=== PATIENT | female | born 2005 | race Caucasian/White ===

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

== ENCOUNTER 2025-05-17 19:14 | Emergency (ER) | payer OTHER, SELFPAY ==
[2025-05-17 19:17] VITALS: BP 130/83; PULSE 111; RESP 16; TEMP 36.6; O2SAT 100
--- NOTE | 2025-05-17 19:23 | ED.FEMALEGU ---
HPI - Female Genitourinary General Chief complaint: Urogenital-Female Stated complaint: Uti Symptoms Time Seen by Provider: 05/17/25 19:23 Source: patient Mode of arrival: ambulatory Limitations: no limitations History of Present Illness HPI Narrative: 20 yo F presents with c/o urinary frequency, urgency, dysuria for 3 days. Today has decreased output. Afebrile. currently on her period. No concern for STI. All systems reviewed and negative except as noted above. Related Data Home Medications ?Medication ?Instructions ?Recorded ?Confirmed ?Last Taken ?Type norethindrone (contraceptive) 0.35 mg 05/17/25 Unknown History mg tablet Allergies Allergy/AdvReac Type Severity Reaction Status Date / Time No Known Allergies Allergy Verified 05/17/25 19:18 [facility] Past Medical History Medical History (Updated 05/17/25 @ 19:31 by Kerri Frey NP) Ear infection Surgical History Surgical History No significant past surgical history Family History Family History Grandparent Cancer Other Alcoholism Anxiety Depression Hypertension Social History Social History Smoking packs per day: 1 Smoking cigarettes per day: 20.0 Years smoked: 5 Smoking pack-years: 5.00 Smoking status: Current every day smoker (quit vaping 2 days ago) Tobacco type: e-cigarettes/vaping Alcohol intake: current Alcohol use details: socially drinks/1 per month Substance use: current Substance use type: marijuana Other substance usage details: smoke marijuana once a week Lack of Transportation: No Lack of Food: Never True Current Housing: I Have Housing Concerned About Future Housing: No Difficulty Paying Gas/Electric Bills: No Difficulty Paying for Meds: No Currently Unemployed: No Education: High School Diploma/GED Difficulty w/ Childcare or Family Care: No Living arrangements: with family Occupation/Education: student Gender identity (if verbalized by the patient): Female Spiritual care concerns: No Comments At time of signature, agree with nursing past medical, surgical, social and family history. There is no relevant family history pertinent to the presenting complaint. Exam Narrative: GENERAL: This is a well-nourished, well-developed patient, in no apparent distress. HEAD: normocephalic, atraumatic. EYES: PERRL. Sclera clear/white. Vision is grossly intact. EARS: External ears normal NOSE: External nose normal NECK: Neck supple, non-tender without lymphadenopathy, masses or thyromegaly. CARDIOVASCULAR: Regular rate and rhythm without murmurs, gallops, or rubs. RESPIRATORY: Clear to auscultation. Breath sounds equal bilaterally. No wheezes, rales, or rhonchi. SKIN: warm, Dry, intact with no suspicious lesions or rash, good texture and turgor. NEURO: awake, alert, and oriented to person, place and time. There were no obvious focal neurologic abnormalities. EXTREMITIES: No joint tenderness, effusion, or edema noted. Course Course Level of Care: Express Care Visit Vital Signs Vital signs: Reviewed MDM - Female Genitourinary MDM Narrative Medical decision making narrative: Unable to complete urinalysis due to patient's urine being brownish colored. Urine culture ordered. Discussed this with patient. Will treat with antibiotic due to patient's symptoms. Patient is well-appearing, nontoxic. Differential Diagnosis Differential diagnosis: Likely urinary tract infection Discharge Plan Discharge Clinical Impression: Urinary tract infection Patient Disposition: Home Condition: Stable Instructions: Antibiotic Form, Urinary Tract Infection in Women (ED) Additional Instructions: Take antibiotic as prescribed until gone. May take [id number] [id number] as directed on packaging to treat urinary symptoms. Drink at least 64 oz of water a day. If you have severe pain, vomiting, fever go to the ER. Patient Language: Vietnamese Prescriptions: New amoxicillin-pot clavulanate [Augmentin] 500-125 mg tablet 1 tablet PO BID 5 Days Qty: 10 0RF No Action norethindrone (contraceptive) 0.35 mg tablet Follow-up/Referrals: PHYSICIAN,SENIOR SCHEDULER [Primary Care Provider, Internal Medicine] Time of Disposition: 19:32
== END 2025-05-17 19:33 | disposition home or self-care (01) ==
PROVIDERS: Emergency Provider Nurse Practitioner Family
DX: N39.0 Urinary tract infection, site not specified (principal); Z87.891 Personal history of nicotine dependence; F12.90 Cannabis use, unspecified, uncomplicated
CPT/HCPCS: 87086; 87186; 99213; G0463

== ENCOUNTER 2025-08-25 22:04 | Emergency (ER) | payer OTHER, SELFPAY ==
--- OUTSIDE RECORDS SUMMARY | 2025-08-25 22:05 | XMS_ITS | Clinical Summary ---
Author Organization [facility] [employer] Address [address] [address] Care Team Providers Care Flap Curer Name Role Phone Roshni Cotter MD Unavailable [phone] Roshni Cotter MD Primary Care Provider [phone] Source Comments [facility],non-owned Affiliates and Associated Physician Practices is amultiple site organization consisting of ambulatory clinics and hospital sitesin [place], [place], [place] and [place]. This disclosure is being madepursuant to the Care Everywhere program and may not contain all information available regarding this patient. Last updated 18.[facility] Allergies No known active allergies Medications * Be aware that medications may not be up to date on this document. Alwaysverify current medications with the patient. norethindrone-e thinyl estradiol (Loestrin 10/06) 1-20 MG-MCG tablet TAKE 1 TABLET BY MOUTH EVERY DAY 84 tablet 3 10/25/2022 Active clobetasol (Temovate) 0.05 % ointment Apply to affected area 2 times daily 60 g 4 03/26/2023 Active SUMAtriptan (Imitrex) 25 MG tablet Take 1 tab by mouth once at first sign of migraine. May repeat one time after 2 hours if needed. 9 tablet 05/29/2023 Active Active Problems Problem Noted Date Diagnosed Date Excessive weight loss 06/23/2022 Acne vulgaris 07/05/2020 Lightheadedness 05/25/2020 Migraine without status migrainosus, not intract able 06/28/2018 cholesterol 2020 -high TG Overview (06/17/2015): Pediatric Screening Measures Metabolic Screen Date: N/A Result: normal Hearing Screen Date: N/A Result: normal Blood type AB- Resolved Problems Problem Noted Date Diagnosed Date Resolved Date Tinea versicolor 06/28/2018 07/05/2020 Immunizations Immunization Administration Dates Next Due INFLUENZA VACCINE, TRIV. (AF LURIA, FLUZONE TRIVALENT; 6MO+) (IIV3) 07/22/2010 DTAP/IPV 07/22/2010 DTaP VACCINE IM (6wk-6yrs) 11/15/2006,,2005,07/04 HEP A PEDS 2 DOSE 05/07/2008,05/09/2007 HEP B VACCINE, PED/ADOL 2005,09/14,2005,05/03 HIB BOOSTER 08/28/2006, 6,2005,07/04 Human Papilloma Virus Nineva lent Vaccine 11/27/2016,05/26/2016 INFLUENZA VACCINE, QUADR. (F LUZONE; FLULAVAL; FLUARIX; AFLURIA QUADRIVALENT; 6MO+), 0.5 ML (IIV4) 07/02/2020,07/01/2019,06/28/2018,05/28,05/26/2016,05/31/2015 Influenza Nasal 06/03/2012,06/30/2011 FRANCISCO JAVIER VACCINE QUAD LAIV4 PF NASAL 06/01/2014 MENINGOCOCCAL ACWY (MCV4P) VAC IM 06/21/2021,05/2016 MMR 06/29/2009,05/04/2006 PNEUMOCOCCAL CONJ, PEDS 05/04/2006,11/16,2005,07/04 POLIO IPV 2005,2005,2005 TDAP (7yrs+) 05/26/2016 Family History Medical History Relation Name Comments ADD/ADHD Brother Arthritis Father Hypertension Father Migraine Father Anemia Mother Cancer Other dads sister at age 16 of colon cancer Migraine Other dads sister Cancer Paternal Grandmother Migraine Paternal Grandmother Migraine Paternal Uncle Relation Name Status Comments Brother Father Mother Other dads sister Paternal Grandmother Paternal Uncle Social History Tobacco Use Types Packs/Day Years Used Date Smoking Tobacco: Never Tobacco Cessation:Counseling Given: Not Answered Comments:aunt Alcohol Use Standard Drinks/Week Comments No 0 (1 standard drink = 0.6 oz pur e alcohol) PHQ-2 Answer Date Recorded PHQ2 TOTAL SCORE 0 11/21/2022 Comments No Sex and Gender Information Value Date Recorded Sex Assigned at Not on file Legal 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 Gender Identity Not on file Sexual Orientation Not on file 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 Not on file Not on file Not on file Last Filed Vital Signs Vital Sign Reading Time Taken Comments Blood Pressure 118/75 06/23/2022 12:56 PM CDT Pulse 99 08/17/2022 2:53 PM CONSTRUCTION TECHNOLOGY INSTRUCTOR Temperature 37.1 C (98.7 F) 01/19/2023 12:54 PM CDT Respiratory Rate 16 03/02/2022 8:23 AM CDT Oxygen Saturation 100% 08/17/2022 2:53 PM CONSTRUCTION TECHNOLOGY INSTRUCTOR Inhaled Oxygen Concentration - - Weight 49 kg (108 lb) 01/19/2023 12:54 PM CDT Height 154.9 cm (5' 1) 06/23/2022 12:56 PM CDT Body Mass Index - - Plan of Treatment Health Maintenance Due Date Last Done Comments HIV SCREENING 2020 MENINGOCOCCAL (Group B) VACC INE SHARED DECISION-MAKING (1 of 2 - Standard) 2021 HEPATITIS C SCREENING 04/29/2023 CHLAMYDIA/GONORRHEA SCREENING 11/30/2023 11/29/2022 DEPRESSION SCREENING 09/17/2024 11/21/2022 COVID-19 VACCINE ( - 2024-2 6 season) 2025 INFLUENZA VACCINE (#1) 2025 , 07/01/2019, 06/28/2018, Additional history exists DTAP/TDAP/TD VACCINES (7 - T d or Tdap) 05/26/2026 05/26/2016, 07/22/2010, 11/15/2006, Additional history exists ZOSTER VACCINE (1 of 2) 2055 HEPATITIS B VACCINE Completed 2005, 2005, 2005, Additional history exists PNEUMOCOCCAL VACCINE Completed 05/04/2006, 2005, 2005, Additional history exists HIB VACCINE Completed 08/28/2006, 10/2005, 2005, Additional history exists HPV VACCINE Completed 11/27/2016, 05/26/2016 MENINGOCOCCAL GROUPS A/C/Y/W VACCINE Completed 06/21/2021, 05/26/2016 Goals Goal Patient Goal Type Associated Problems Recent Progress Patient-Stated? Author Use safety retraint in car Lifestyle On track( 022 1:02 PM CDT) Lisa Sullivan RN Insurance [employer] SELF PAY NO INSURANCE Member Subscriber Plan / Payer (Ef fective for All Dates) Name:Eladia Rico Member ID:Not on file Relation to Subscriber:Not on file Name:ELADIA RICO Subscriber ID:Not on file (Home) Address: [address] [place] [address] Payer ID:Not on file Group ID:Not on file Type:Self Pay Address: [place], [place] ANTHEM ANTHEM Care Teams Flap Curer Relationship Specialty Start Date End Date Roshni Cotter MD PCP - Pediatrics 06/08/09 Roshni Cotter MD PCP - General Pediatrics 08/07/11
--- OUTSIDE RECORDS SUMMARY | 2025-08-25 22:05 | XMS_ITS | Encounter Summary ---
Author Organization [facility] Address [address] [place] [address] Care Team Providers Care Professor Of Criminal Justice Name Role Phone Roshni Cotter MD Unavailable [phone] Roshni Cotter MD Primary Care Provider [phone] Encounter Details Date Type Department Care Team (Late st Contact Info) Description 12/23/2020 [facility] Outpatient Visit [facility] [address] [place] [phone] Jamaica Rosales MD [address] [place] [phone] Social History Tobacco Use Types Packs/Day Years Used Date Smoking Tobacco: Never Comments:aunt Alcohol Use Standard Drinks/Week Comments No 0 (1 standard drink = 0.6 oz pur e alcohol) Comments No Sex and Gender Information Value Date Recorded Sex Assigned at Not on file Legal 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 Author Use safety retraint in car Lifestyle On track( 022 1:02 PM CDT) Lisa Sullivan RN documented as of this encounter Visit Diagnoses Not on filedocumented in this encounter Additional Health Concerns Infection Onset Date Last Indicated Resolved Time COVID-19 Under Investigation 01/17/2021 01/17/2021 01/17/2021 4:25 PM CDT COVID-19 Under Investigation 05/16/2021 05/16/2021 05/16/2021 3:51 PM CDT COVID-19 Under Investigation 06/07/2021 06/07/2021 06/07/2021 4:09 PM CDT COVID-19 Under Investigation 08/22/2021 08/22/2021 08/22/2021 2:52 PM DEPUTY MANAGER COVID-19 Under Investigation 01/19/2023 01/19/2023 01/19/2023 1:46 PM CDT documented as of this encounter Care Teams Professor Of Criminal Justice Relationship Specialty Start Date End Date Roshni Cotter MD PCP - Pediatrics 06/08/09 Roshni Cotter MD PCP - General Pediatrics 08/07/11 documented as of this encounter
--- OUTSIDE RECORDS SUMMARY | 2025-08-25 22:05 | XMS_ITS | Data Portability ---
Author Organization [facility] Address [address] [place] [address] Care Team Providers Care Scrap Stripper Hand Name Role Phone MARTÍN IVEY Primary Care Provider Assessment Encounter Date Assessment Date Assessment LastModified by Organization Details LastModified Time 11/29/2022 11/29/[address] trich done. continue OCP, doing well, do not think bleeding is BTB cervix friable- monsels applied. pelvic rest for 10d FU 1 year or prn [email or web address] Not available 11/29/2022 17:04:14 01/02/2024 01/02/2024 Annual gynecological exam performed. Patient will come back in a year unless there are new symptoms. Not available 01/02/2024 16:09:33 03/25/2025 03/25/2025 Annual gynecological exam performed. Patient will come back in a year unless there are new symptoms. [email or web address] Not available 03/25/2025 12:20:07 Plan of Treatment Reminders Order Date Submit Date Provider Last Modified By Organization Details Last Modified Time Details Appointments None recorded. Lab None recorded. Referral None recorded. Procedures None recorded. Surgeries None recorded. Imaging None recorded. Medication Orders norethindro ne (contracept mj) 0.35 mg tablet 2024 025 [facility] [address] [place], [address], 12:20:06 Junel Fe 24 1 mg-20 mcg (24)/75 mg (4) tablet 2023 024 [email or web address] [facility] [address] [place], [address], 09:22:33 Patient TargetsNo targets recorded. Patient InstructionsNo instructions recorded. Reason for Referral None Reported. Results Created Date Observation Date Name Description Value Unit Range Abnormal Flag Note LastModifiedBy Organization Detail LastModifiedTime 11/30/1911/29/2022 CT/GC AND TRICH OMONA S VAGIN CECI (RRNA ), SWAB chlamydia trachomatis, PCR Negati ve negati ve Not Available [facility] (Lab) [address], [place], [address], 11/30/2022 14:16:44 11/30/19 23 11/29/2022 CT/GC AND TRICH OMONA S VAGIN CECI (RRNA ), SWAB neisseria gonorrhoeae, PCR Negati ve negati ve Not Available [facility] (Lab) [address], [place], [address], 11/30/2022 14:16:44 11/30/19 23 11/29/2022 CT/GC AND TRICH OMONA S VAGIN CECI (RRNA ), SWAB trichomonas vaginalis ribosomal RNA (rrna) Negati ve negati ve Not Available [facility] (Lab) [address], [place], [address], 11/30/2022 14:16:44 01/02/20 24 01/02/2024 CT/GC AND TRICH OMONA S VAGIN CECI (RRNA ), URINE chlamydia trachomatis, PCR Negati ve negati ve Not Available [facility] (Lab) [address], [place], [address], 01/03/2024 19:54:48 01/02/20 24 01/02/2024 CT/GC AND TRICH OMONA S VAGIN CECI (RRNA ), URINE neisseria gonorrhoeae, PCR Negati ve negati ve Not Available [facility] (Lab) [address], [place], [address], 01/03/2024 19:54:48 01/02/20 24 01/02/2024 CT/GC AND TRICH OMONA S VAGIN CECI (RRNA ), URINE trichomonas vaginalis ribosomal RNA (rrna) Negati ve negati ve AH Not Available [facility] (Lab) [address], [place], [address], 01/03/2024 19:54:48 Result Notes None recorded. Problems Name Problem SNOMED Code Status Onset Date Resolution Date Notes Provider Name and Address Organization Details Recorded Time Migraine without aura 13999616 Active 023 Patsy Hill MD [address], [place], [address], [facility] 17:01:39 Problem Notes None recorded. Medical Equipment None Reported. Allergies No known drug allergies Medications Name Sig Start Date Stop Date Status Note LastModified by Organization Details LastModified Time amoxicillin 500 mg capsule TAKE 1 CAPSULE BY MOUTH TWICE DAILY FOR 10 DAYS 06/13 completed Not Available Not Available Not Available benzonatate 200 mg capsule TAKE 1 CAPSULE BY MOUTH THREE TIMES DAILY NEEDED FOR COUGH 03/25 completed Not Available Not Available Not Available sumatriptan 25 mg tablet TAKE 1 TABLET BY MOUTH ONCE AT FIRST SIGN OF MIGRAINE. MAY REPEAT ONE TIME AFTER 2 HOURS IF NEEDED. 03/25 completed Not Available Not Available Not Available prednisone 20 mg tablet TAKE 2 TABLETS BY MOUTH ONCE DAILY FOR 5 DAYS 03/25 completed Not Available Not Available Not Available omeprazole 40 mg capsule,del ayed release TAKE 1 CAPSULE BY MOUTH ONCE DAILY 03/25 completed Not Available Not Available Not Available dicyclomine 20 mg tablet TAKE 1 TABLET BY MOUTH 4 TIMES DAILY 03/25 completed Not Available Not Available Not Available nortriptyli ne 10 mg capsule TAKE 1 CAPSULE BY MOUTH ONCE DAILY AT BEDTIME 03/25 completed Not Available Not Available Not Available norethindro ne acetate 1 mg-ethinyl estradiol 20 mcg tablet TAKE 1 TABLET BY MOUTH ONCE DAILY 03/25 completed Not Available Not Available Not Available clobetasol 0.05 % topical ointment APPLY TOPICALLY TO AFFECTED AREA TWICE DAILY 08/21 completed Not Available Not Available Not Available methylpredn isolone 4 mg tablets in a dose pack FOLLOW PACKAGE DIRECTION S 01/01 completed Not Available Not Available Not Available norethindro ne (contracept mj) 0.35 mg tablet Take 1 tablet every day by oral route. 2024 active Not Available Not Available Not Avai lable ondansetron 4 mg disintegrat ing tablet DISSOLVE 1 TABLET IN MOUTH EVERY 8 HOURS NEEDED FOR NAUSEA AND VOMITING 03/25 completed Not Available Not Available Not Available amoxicillin 875 mg-potassiu m clavulanate 125 mg tablet TAKE 1 TABLET BY MOUTH EVERY 12 HOURS FOR 7 DAYS 03/25 completed Not Available Not Available Not Available atomoxetine 25 mg capsule 03/25 completed Not Available Not Available Not Available Imitrex 08/21 completed Not Available Not Available Not Available Norethindro ne-Ethin Estradiol 03/25 completed Not Available Not Available Not Available Ladarius 24 Fe 1 mg-20 mcg (24)/75 mg (4) tablet Take 1 tablet every day by oral route with meal(s) for 90 days. 01/24 completed Not Available Not Available Not Available Vitals Date Recorded Body height Body mass index (BMI) [Percentile] Per age and sex Body mass index (BMI) Body weight Systolic And Diastolic Provider Name and Address Organization Details Last Updated DateTime 11/29/2022 154.94 cm 31 % 19.7 kg/m2 09752.6 1 g 129/80 mm[Hg] Sherin Corona [facility] 16:25:10 Date Recorded Systolic And Diastolic Provider Name and Address Organization Details Last Updated DateTime 01/02/2024 116/70 mm[Hg] Shena Monique, [facility]- [address], [place], [address], [facility] 01/02/2024 16:28:00 Date Recorded Body height Body mass index (BMI) Body mass index (BMI) [Percentile] Per age and sex Body weight Provider Name and Address Organization Details Last Updated DateTime 01/02/2024 154.94 cm 19.5 kg/m2 23 % [address].[address] [facility] 01/02/2024 16:09:47 Date Recorded Body height Body mass index (BMI) Body mass index (BMI) [Percentile] Per age and sex Body weight Systolic And Diastolic Provider Name and Address Organization Details Last Updated DateTime 03/25/2025 154.94 cm 19 kg/m2 15 % 84140.1 1 g 114/73 mm[Hg] Sara Olmedoton [facility] 5 11:54:03 Date Recorded Body height Body mass index (BMI) [Percentile] Per age and sex Body mass index (BMI) Body weight Systolic And Diastolic Provider Name and Address Organization Details Last Updated DateTime 08/21/2023 154.94 cm 51 % 21.4 kg/m2 85543.9 4 g 112/73 mm[Hg] Nan Ingram [facility] 3 18:39:43 Social History Question Answer Notes LastModified by Organizat ion Details LastModified Time Tobacco Smoking Status Never Smoker [facility] 11/29/2022 12:21:12 How Many Years Have You Consumed Alcohol? 3 [email or web address] Information not available 03/25/2025 Are You Blind Or Do You Have Difficulty Seeing? No [email or web address] Information n ot available 03/25/2025 What Is Your Level Of Caffeine Consumption? Occasional [email or web address] Information not available 03/25/2025 How Much Tobacco Do You Chew? None [email or web address] Information not available 03/25/2025 In The 14 Days Before Symptom Onset, Have You Had Close Contact With A Laboratory-confirm ed COVID-19 While That Case Was Ill? No Information n ot available 08/21/2023 In The 14 Days Before Symptom Onset, Have You Had Close Contact With A Person Who Is Under Investigation For COVID-19 While That Person Was Ill? No Information not available 08/21/2023 Have You Been To An Area Known To Be High Risk For COVID-19? No Information not available 08/21/2023 Are You Deaf Or Do You Have Serious Difficulty Hearing? No [email or web address] Information not available 03/25/2025 What Type Of Diet Are You Following? REGULAR [email or web address] Information n ot available 03/25/2025 What Is The Highest Grade Or Level Of School You Have Completed Or The Highest Degree You Have Received? RV26649-1 [email or web address] Information not available 03/25/2025 Are There Any Guns Present In Your Home? No [email or web address] Information not available 03/25/2025 Have You Ever Been Counseled For Unhealthy Alcohol Use? No Information not available 11/29/2022 Do You Use Protection During Sex? Usually [email or web address] Information not available 03/25/2025 Do You Use Your Seat Belt Or Car Seat Routinely? Yes [email or web address] Information not available 03/25/2025 Do You Have Smoke And Carbon Monoxide Detectors In Your Home? Yes [email or web address] Information not available 03/25/2025 How Much Tobacco Do You Smoke? No [email or web address] Information not available 03/25/2025 Do You Use Sunscreen Routinely? Yes [email or web address] Information not available 03/25/2025 Has Tobacco Cessation Counseling Been Provided? No Information not available 11/29/2022 Have You Used IV Drugs? No [email or web address] Information not available 03/25/2025 Sex: Unknown Functional Status Question Answer Note LastModified by Organizat ion Details LastModified Time Do you use any illicit or recreational drugs? No Information not available 11/29/2022 Do you or have you ever used any other forms of tobacco or nicotine? No Information not available 11/29/2022 What is your level of alcohol consumption? Occasional Information not available 11/29/2022 Are you able to walk independently without assistance or assistive devices? 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 None [email or web address] Information not available 03/25/2025 Mental Status Question Answer Note LastModified by Organization D etails LastModified Time Do you feel stressed (tense, restless, nervous, or anxious, or unable to sleep at night)? [id number] [email or web address] Information not available 03/25/2025 Family History Relationship Description Onset Age of this Age Resolved Age Notes LastModified by Organization Details LastModified Time Paternal Aunt Malignant neoplasm of colon [email or web address] Not available 2022 16:25:41 Paternal Aunt Anxiety disorder [email or web address] Not available 2024 11:49:07 Paternal Aunt Depressive disorder [email or web address] Not available 2024 11:49:07 Paternal Aunt Substance abuse [email or web address] Not available 2024 11:49:07 Paternal Grandmother Hypertensive disorder [email or web address] Not available 2022 16:26:07 Paternal Grandmother Anxiety disorder [email or web address] Not available 2024 11:49:07 Paternal Grandmother Depressive disorder [email or web address] Not available 2024 11:49:07 Paternal Grandmother Substance abuse [email or web address] Not available 2024 11:49:07 Father Depressive disorder [email or web address] Not available 2022 16:26:13 Father Anxiety disorder [email or web address] Not available 2022 16:26:18 Father Hypertensive disorder [email or web address] Not available 2024 11:49:07 Father Substance abuse [email or web address] Not available 2024 11:49:07 Maternal Uncle Anxiety disorder [email or web address] Not available 2024 11:49:07 Maternal Uncle Depressive disorder [email or web address] Not available 2024 11:49:07 Maternal Uncle Hypertensive disorder Not available 2024 11:49:07 Maternal Uncle Substance abuse Not available 2024 11:49:07 Brother Anxiety disorder [email or web address] Not available 2024 11:49:07 Unspecified Relation Malignant neoplasm of uterus [email or web address] Not available 2024 11:49:07 Maternal Grandmother Anxiety disorder [email or web address] Not available 2024 11:49:07 Maternal Grandmother Depressive disorder [email or web address] Not available 2024 11:49:07 Maternal Grandmother Substance abuse [email or web address] Not available 2024 11:49:07 Maternal Grandfather Anxiety disorder [email or web address] Not available 2024 11:49:07 Maternal Grandfather Depressive disorder [email or web address] Not available 2024 11:49:07 Maternal Grandfather Substance abuse [email or web address] Not available 2024 11:49:07 Paternal Grandfather Substance abuse Not available 2024 11:49:07 Medical History Condition Response Allergies (Food, seasonal, environmental ) N Other N Drug/Latex Allergies/Reactions N Breast Cancer N Blood Transfusion N Dermatologic Disorders N Lung Disease N Defects or Inherited Disease N Breast Problem N Gestational Diabetes N Hematologic disorders N Anesthesia Complications N History of STI N Deep Vein Thrombosis N Polycystic ovary syndrome N Anxiety Disorder N Autoimmune disease N Arthritis N Polyps N Infertility N Acid Reflux (GERD) N History of abnormal pap N Cancer N Varicosities N Stroke N Neurologic/Epilepsy N Endometriosis N High Cholesterol N Fibromyalgia N Headaches Y Kidney Disease N Heart Problems N Thyroid Problems N Kidney or Bladder Problems N GI Problems N Eating Disorder N Anemia N Art (IVF or FET) N Psychiatric Illness N Ovarian Cancer N Diabetes N Pulmonary (TB, Asthma) N Hepatitis/Liver Disease N No Past Medical History N Eczema N Urinary Tract Infection N Abuse/Domestic Violence N Asthma N Trauma/Violence N Depression/ depression N Heart Disease N Pre-Eclampsia N Hypertension N Osteoporosis N Thrombophilias N Gynecological History Statement/Question Response Flow Light Date of LMP 03/21/2025 N Was last menstrual period normal N STIs/STDs N HPV Vaccine Y Duration of Flow (days) 4 Current Control Method BCPs Are cycles usually normal Y Frequency of Cycle (Q days) 28 Sexually Active? N Menses Monthly Y Age of first menstrual cycle 12 Date of Last Pap Smear Sexual Problems? N Desired Control Method BCPs LMP Definite N Obstetrics History GPAL:G 0 P 0 0 0 0 Past Encounters Encounter ID Performer Location Encounter Start Date Encounter Closed Date Diagnosis/Indication Diagnosis SNOMED-CT Code Diagnosis ICD10 Code Diagnosis IMO Codes Diagnosis Note [id number] Patsy Hill MD [place] [address] [address] 11/29/2022 16:15:33 11/29/2022 17:12:56 Postcoital bleeding 35082894 N93.0 Surveillan ce of oral contraception 945466220 Z30.41 Venereal d isease screening 275618725 Z11.3 [id number] [facility] [address] [address] 08/21/2023 18:23:59 08/22/2023 15:40:01 Contraception care management 496944295 Z30.9 Discussed all control options in depth and pt is interested in Nexplanon. Discussed all risks and benefits including irregular unschedule d bleeding. Pt verbalized understand ing and would like to proceed. She is currently on BCP's.We discussed that if she stays on these she can make the switch to nexplanon at any time and we do not need to wait for another cycle; as long as that day's UPT is neg we can place this device.Remy l update STD urine screen at that visit as well.Under standing verbalized and agreeable. Will review literature given & call to schedule. Time spent in visit is a total of 30 mins with at least 50% of visit consisting of counseling and review of plan of care. [id number] AGUS Guzman[facility] [address] [address] 01/02/2024 16:00:57 01/02/2024 16:38:04 Gynecologic examination 70521929 Z01.419 Take Calcium with Vitamin D 1200mg daily if not receiving in daily diet. It is strongly advised to have an annual flu shot and up can obtain at most pharmacies . If you have not had a TDap shot in the last 10 years you should obtain one as well. Discussed with patient & provided with informatio n regarding Gardisil vaccine to prevent the 4 strains for HPV that cause cervical cancer. Encourage safe sexual practices, to use condoms and limit partners if not already in a monogamous relationsh ip. Do monthly self breast exams. BRCA testing is now available for patients with strong genetic history of female cancer. If interested contact the office. Engage in daily exercise of low impact aerobic exercise 45-60 minutes 4-5 times weekly. Avoid tobacco, illicit drugs, and alcohol. This lifestyle behavior pattern will lead to less health conditions and longer life span. If BMI greater than 25 weight watchers or dietary consult advised. Pap smear is not recommende d prior to the age of 21. If you have any concerns, pelvic, or vaginal problems we can discuss testing. Patient received above instructio ns, and questions have been answered. If you have any questions please call or respond to this email. Patient was made aware of the patient portal and may obtain a paper copy of today's plan if desired.[place] p due age 21yoSTD Screen urine sentGeneti c Screen discussedC olon Screen naDexa Screen naRoutine Labs PCPHappy on her OCPDiscuss ed weight loss-she is seeing her PCP about appetite decrease/n ausea with first meal of the day.Neg anxiety, ED, Food aversions that would contribute to this; school is fine.Frien ds are good.Work is good.encou raged PCP visit. [id number] Aleksandar Hodge MD [place] [address] [address] 03/25/2025 11:44:20 03/25/2025 12:27:45 Contraception care management 608999499 Z30.9 Discussed all control options in great detail. Pt would like to start ocp. She is aware of the risks and benefits. She does have history of migraines with aura. Recommende d progestero ne-only control pill.Pt will start her pills on the first sunday following the start of her period. She is aware it is not effective for control the first month. She is also aware of the importance of taking at the same time every day. Encouraged use of condoms as the pill does not protect against STD's. Will return in 3 months for med check if having concerns or if periods are still irregular. Consent was read and signed. Pt verbalized understand ing. Health Concerns Section Related Observation LastModified by Organization Detai ls LastModified Time None Recorded Concern Status LastModified by Organization Details LastModified Time None Recorded Advance Directives Directive None Recorded Payers Insurance Date Sequence Insurance Name Policy Number Policy Santizo Covered Member ID Santizo Member ID Guarantor Name 03/11/2025 1 [employer] Rico [id number] Denae Rico 03/23/2025 1 MATT Rico [id number] Denae Rico 03/25/2025 1 [facility] Eladia Rico [id number] Denae Rico 06/11/2023 1 [place] [id number] Denae Rico [id number] Denae Rico 11/07/2022 1 [place] [id number] Denae Rico [id number] Denae Rico Notes Date Note Type Note Provider Name and Address Organization Details Recorded Time 3 text/html Patient is a 17yo G0 who presents for bleeding with sex. She is sexually active with one partner for the last month. Each of the 6 times she has bled moderately for 2 days after. On OCP for 3 years for heavy periods, very good about taking pills on time, periods very regular with no BTB. Using condoms every time. No pain with bleeding. Concerns: HPV vaccine: done Depression:denies Domestic violence:denies exercise:yes, regular Patsy Hill MD [address], [place], [address], [facility] 11/29/2022 17:04:58 3 text/html ROS as noted in the HPI Here today for control consultation of nexplanon. On pills nowFeels nexplanon would be a better choice for her.Wants something that is not daily. Neg pain of abd/pelvis/flankNeg urinary sx'sNeg GI sx'sNeg N/V/F/C/DNeg Vag d/c, odor, irritation, itching Shena Monique, [facility] [address], [place], [address], [facility] 08/22/2023 15:34:08 4 text/html Annual GYNReported by PatientHistoryFor history, patient reportsno gynecologic complaints.Genitourinary symptomsFor menstrual cycle, patient reportsnormal menses. For urinary symptoms, patient reportsno hematuriaandno incontinence. For vulva, patient reportsno genital lesion. For vagina, patient reportsnormal vaginal discharge.Breast symptomsFor breast, patient reportsno breast pain,no breast lump, andno nipple discharge.ContraceptionFo r current contraception, patient reportssatisfied with current contraceptionandoral contraceptives.Endocrine symptomsFor sexual complaints, patient reportsno sexual complaints,no pain during intercourse, andnormal libido. For menopausal symptoms, patient reportsno menopausal symptomsandnormal vaginal lubrication.Psychological symptomsFor psychological symptoms, patient reportsno depression,no anxiety, andno pmdd.Preventative measuresFor preventive measures, patient reportsencourage self breast examination,encourage regular exercise,encourage no tobacco use, andencourage regular mammograms starting age 40. AGUS Guzman- [address], [place], [address], [facility] 01/02/2024 16:31:33 text/html Annual GYNReported by PatientGenitourinary symptomsFor menstrual cycle, patient reportsnormal menses. For urinary symptoms, patient reportsno hematuriaandno incontinence. For vulva, patient reportsno genital lesion. For vagina, patient reportsnormal vaginal discharge.Breast symptomsFor breast, patient reportsno breast pain,no breast lump, andno nipple discharge.ContraceptionFo r current contraception, patient reportscondoms.Endocrine symptomsFor sexual complaints, patient reportsno sexual complaints,no pain during intercourse, andnormal libido. For menopausal symptoms, patient reportsno menopausal symptomsandnormal vaginal lubrication.Psychological symptomsFor psychological symptoms, patient reportsno depression,no anxiety, andno pmdd.Preventative measuresFor preventive measures, patient reportsencourage self breast examination,encourage regular exercise,encourage no tobacco use, andencourage regular mammograms starting age 40. Patient presents for annual well woman exam. Patient would like to discuss control options for contraception and to better regulate her cycle.Patient reports that her cycles are q25-34 days, last 4 days with light flow. BENNETT BREAUX NP [address], [place], [address], [facility] 03/25/2025 12:26:19 OBGyn Episode No OBEpisode recorded.
--- OUTSIDE RECORDS SUMMARY | 2025-08-25 22:05 | XMS_ITS | Encounter Summary ---
Author Organization [facility] Address [address] [place] [address] Care Team Providers Care Rail Gang Supervisor Name Role Phone Roshni Cotter MD Unavailable [phone] Roshni Cotter MD Primary Care Provider [phone] Encounter Details Date Type Department Care Team (Late st Contact Info) Description 07/31/2019 Telephone [facility] - [facility] [address] [place] [address] Hermila Batista Social History Tobacco Use Types Packs/Day Years Used Date Smoking Tobacco: Passive Smo ke Exposure - Never Smoker Comments:aunt Alcohol Use Standard Drinks/Week Comments No 0 (1 standard drink = 0.6 oz pur e alcohol) Comments No Sex and Gender Information Value Date Recorded Sex Assigned at Not on file 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
[2025-08-25 22:11] VITALS: BP 131/82; PULSE 112; RESP 18; TEMP 36.7; O2SAT 97
[2025-08-25 22:56] LABS: BEDSIDEPREGUCG Negative (Negative)
[2025-08-25 23:41] VITALS: BP 105/66; PULSE 76; RESP 10; O2SAT 98
[2025-08-25 23:50] LABS: Hematocrit 42.2 % (37.0-47.0); Hemoglobin 14.1 g/dL (12.0-15.0); Immature Granulocyte Percent A 0.5 % (0-0.5); Lymphocytes Absolute Auto 1.69 K/mm3 (0.9-3.2); Mean Corpuscular HGB Conc 33.4 g/dl (32-36); Mean Corpuscular Hemoglobin 27.8 pg (26-34); Mean Corpuscular Volume 83.2 fl (80-100); Nucleated Red Blood Cells Absolute Auto 0.000 K/mm3 (0.0-0.012); Nucleated Red Blood Cells Perc 0.0 % (0.0-0.2); Platelet Count Result 426 k/mm3 (150-375); Red Blood Count 5.07 M/mm3 (4.2-5.4); White Blood Count 11.8 K/mm3 (4.5-10.0)
[2025-08-26] VITALS: BP 108/65; PULSE 67; RESP 16; TEMP 37.1; O2SAT 98
[2025-08-26 00:02] LABS: Alanine Aminotransferase 37 U/L (6-35); Albumin Level 4.5 g/dL (3.5-5.1); Alkaline Phosphatase 91 U/L (38-126); Anion Gap 11 mmol/L (4-12); Aspartate Amino Transferase 25 U/L (14-36); Bilirubin,Total 0.6 mg/dL (0.2-1.3); Blood Urea Nitrogen 12 mg/dL (7-17); Calcium 9.7 mg/dL (8.4-10.2); Carbon Dioxide 23 mmol/L (22-30); Chloride 100 mmol/L (98-107); Estimated Glomerular Filt Rate > 60; Glucose 95 mg/dL (65-110); Potassium 3.7 mmol/L (3.4-5.0); Sodium 134 mmol/L (137-145); Total Protein 7.9 g/dL (6.3-8.2)
[2025-08-26 00:16] LABS: Add Urine Microscopic? YES; Appearance Urine Cloudy (Clear); Glucose Urine UA Negative (Negative); Leukocyte Esterase Ur Negative LEU/UL (Negative); Need Manual Microscopic Reviewed; Nitrate Urine Negative (Negative); Specific Grav Ur > 1.045 (1.001-1.035)
[2025-08-26 00:30] VITALS: BP 111/76; PULSE 68; RESP 17; O2SAT 99
--- OUTSIDE RECORDS SUMMARY | 2025-08-26 00:38 | XMS_ITS | Encounter Summary ---
Author Organization [facility] Health Address [address] [place] [address] Care Team Providers Care Rubbish Collector Name Role Phone Roshni Cotter MD Unavailable [phone] Roshni Cotter MD Primary Care Provider [phone] Encounter Details Date Type Department Care Team (Late st Contact Info) Description 07/31/2019 [facility] Outpatient Visit [facility] [address] [place] [address] Document, Scanned Social History Tobacco Use Types Packs/Day Years Used Date Smoking Tobacco: Passive Smo ke Exposure - Never Smoker Comments:aunt Alcohol Use Standard Drinks/Week Comments No 0 (1 standard drink = 0.6 oz pur e alcohol) Comments No Sex and Gender Information Value Date Recorded Sex Assigned at Not on file Legal Sex Female 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 Gender Identity Not on file Sexual Orientation [...] Lifestyle On track( 022 1:02 PM CDT) No Lisa Humphreys RN documented as of this encounter Visit Diagnoses Not on filedocumented in this encounter Additional Health Concerns Infection Onset Date Last Indicated Resolved Time COVID-19 Under Investigation 01/17/2021 01/17/2021 01/17/2021 4:25 PM CDT COVID-19 Under Investigation 05/16/2021 05/16/2021 05/16/2021 3:51 PM CDT COVID-19 Under Investigation 06/07/2021 06/07/2021 06/07/2021 4:09 PM CDT COVID-19 Under Investigation 08/22/2021 08/22/2021 08/22/2021 2:52 PM CONCRETE STONE FINISHING SUPERVISOR COVID-19 Under Investigation 01/19/2023 01/19/2023 01/19/2023 1:46 PM CDT documented as of this encounter Care Teams Rubbish Collector Relationship Specialty Start Date End Date Roshni Cotter MD PCP - Pediatrics 06/08/09 Roshni Cotter MD PCP - General Pediatrics 08/07/11 documented as of this encounter
--- OUTSIDE RECORDS SUMMARY | 2025-08-26 00:38 | XMS_ITS | Encounter Summary ---
Author Organization [facility] Address [address] [place] [address] Care Team Providers Care Voyage Management System Operator Name Role Phone Roshni Cotter MD Unavailable [phone] Roshni Cotter MD Primary Care Provider [phone] Encounter Details Date Type Department Care Team (Late st Contact Info) Description 07/31/2019 Telephone [facility] - Pediatrics [address] 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
--- OUTSIDE RECORDS SUMMARY | 2025-08-26 00:38 | XMS_ITS | Encounter Summary ---
Author Organization [facility] Health [facility] [address] [place] [address] Care Team Providers Care Computer Engineering Technologist Name Role Phone Roshni Cotter MD Unavailable [phone] Roshni Cotter MD Primary Care Provider [phone] Encounter Details Date Type Department Care Team (Late st Contact Info) Description 12/23/2020 [facility] Outpatient Visit [facility] [address] [place] [phone] Jamaica Rosales MD [address] [place] [phone] Social History Tobacco Use Types Packs/Day Years Used Date Smoking Tobacco: Never Comments:aunt Alcohol Use Standard Drinks/Week Comments No 0 (1 standard drink = 0.6 oz pur e alcohol) Comments No Sex and Gender Information Value Date Recorded Sex Assigned at Not on file Legal Sex Female 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
--- OUTSIDE RECORDS SUMMARY | 2025-08-26 00:39 | XMS_ITS | Clinical Summary ---
Author Organization [facility] [employer] Address [address] [place] [address] Care Team Providers Care Pediatric Orthodontist Name Role Phone Roshni Cotter MD Unavailable [phone] Roshni Cotter MD Primary Care Provider [phone] Source Comments [facility],non-owned Affiliates and Associated Physician Practices is amultiple site organization consisting of ambulatory clinics and hospital sitesin [place], [place], [place] and [place]. This disclosure is being madepursuant to the Care Everywhere program and may not contain all information available regarding this patient. 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 Not on file Not on file Not on file Last Filed Vital Signs Vital Sign Reading Time Taken Comments Blood Pressure 118/75 06/23/2022 12:56 PM CDT Pulse 99 08/17/2022 2:53 PM HARDWOOD FLOOR INSTALLER Temperature 37.1 C (98.7 F) 01/19/2023 12:54 PM CDT Respiratory Rate 16 03/02/2022 8:23 AM CDT Oxygen Saturation 100% 08/17/2022 2:53 PM HARDWOOD FLOOR INSTALLER Inhaled Oxygen Concentration - - Weight 49 [...] ID:Not on file (Home) Address: [address] [place] [address] Payer ID:Not on file Group ID:Not on file Type:Self Pay Address: [place], [place] ANTHEM ANTHEM Care Teams Pediatric Orthodontist Relationship Specialty Start Date End Date Roshni Cotter MD PCP - Pediatrics 06/08/09 Roshni Cotter MD PCP - General Pediatrics 08/07/11
[2025-08-26 01:00] VITALS: BP 110/80; PULSE 74; RESP 12; TEMP 37.1; O2SAT 100
[2025-08-26] MEDS: ONDANSETRON INJ 4 MG/2 ML VIAL IV PUSH (01:00)
[2025-08-26] MEDS: KETOROLAC 30 MG/ML VIAL (*BKC) IV PUSH (01:00)
[2025-08-26] MEDS: ACETAMINOPHEN 500 MG TABLET 1000 MG PO (01:00)
[2025-08-26] MEDS: LACTATED RINGERS 1,000 ML 999 ML IV CONT (01:01)
[2025-08-26 01:30] VITALS: BP 116/68; PULSE 91; RESP 16; O2SAT 99
[2025-08-26 02:00] VITALS: BP 116/68; PULSE 91; RESP 23; TEMP 37.1; O2SAT 99
--- NOTE | 2025-08-26 03:11 | ED.GENADULT ---
HPI - General Adult General Chief complaint: Abdominal Pain Stated complaint: dehydrated/syncope Time Seen by Provider: 08/25/25 23:20 History of Present Illness HPI narrative: 20-year-old female presenting s/p tonsillectomy on 08/19 with persistent nausea and vomiting since her procedure. Patient states she has been unable to keep food or water down with her mother reporting a loss of 7 lb since the procedure. She reports her last bowel movement was today. Denies fevers/chills, hematemesis, abdominal pain, neck pain, chest pain/ shortness of, headaches, or dysphagia. Related Data Home Medications ?Medication ?Instructions ?Recorded ?Confirmed ?Last Taken ?Type norethindrone (contraceptive) 0.35 mg 05/17/25 Unknown History mg tablet Allergies Allergy/AdvReac Type Severity Reaction Status Date / Time No Known Allergies Allergy Verified 08/25/25 22:05 Review of Systems Review of Systems: All systems reviewed & are unremarkable except as noted in HPI and below PMFSH Past Medical History Medical History (Updated 08/26/25 @ 02:10 by GREG Nieves) Ear infection Surgical History Surgical History No significant past surgical history Family History Family History Grandparent Cancer Other Alcoholism Anxiety Depression Hypertension Social History Social History Smoking packs per day: 1 Smoking cigarettes per day: 20.0 Years smoked: 5 Smoking pack-years: 5.00 Smoking status: Current every day smoker (quit vaping 2 days ago) Tobacco type: e-cigarettes/vaping Alcohol intake: current Alcohol use details: socially drinks/1 per month Substance use: current Substance use type: marijuana Other substance usage details: smoke marijuana once a week Lack of Transportation: No Lack of Food: Never True Current Housing: I Have Housing Concerned About Future Housing: No Difficulty Paying Gas/Electric Bills: No Difficulty Paying for Meds: No Currently Unemployed: No Education: High School Diploma/GED Difficulty w/ Childcare or Family Care: No Living arrangements: with family Occupation/Education: student Gender identity (if verbalized by the patient): Female Spiritual care concerns: No Exam Narrative: GENERAL: Lethargic, ill-appearing. HEAD: Normocephalic, atraumatic. EYES: PERRLA and EOMI. ENT: Nares clear, no rhinorrhea or epistaxis. Mucous membranes moist. Tonsillar surgical sites exhibit white-yellow fibrinous exudate consistent with post-tonsillectomy healing; no purulence, fluctuance, or erythema suggestive of infection. NECK: Supple. No adenopathy or masses. No carotid bruits or JVD. Mild TTP of anterior lymph nodes. CHEST: Clear to auscultation. No respiratory distress. No wheezes rales or rhonchi HEART: Regular rate and rhythm. No murmur heard. Normal peripheral pulses. ABDOMEN: Soft, nontender, nondistended, normal active bowel sounds. EXTREMITIES: Normal range of motion. No edema. SKIN: Warm, dry, no rash. NEURO: No focal deficits. Alert and oriented x3. PSYCH: Normal mood and affect Course Vital Signs Vital signs: Vital Signs Temperature 98.1 F 08/25/25 22:11 Pulse Rate 112 H 08/25/25 22:11 Respiratory Rate 18 08/25/25 22:11 Blood Pressure 131/82 08/25/25 22:11 Pulse Oximetry 97 08/25/25 22:11 Oxygen Delivery Room Air 08/25/25 22:11 Temperature 98.7 F 08/26/25 02:00 Pulse Rate 91 08/26/25 02:00 Respiratory Rate 23 H 08/26/25 02:00 Blood Pressure 116/68 08/26/25 02:00 Pulse Oximetry 99 08/26/25 02:00 Oxygen Delivery Room Air 08/25/25 22:11 [facility] MDM Narrative Medical decision making narrative: 20-year-old female presenting s/p tonsillectomy on 08/19 with persistent nausea and vomiting since her procedure. Patient states she has been unable to keep food or water down with her mother reporting a loss of 7 lb since the procedure. She reports her last bowel movement was today. Denies fevers/chills, hematemesis, abdominal pain, neck pain, chest pain/ shortness of, headaches, or dysphagia. Patient's mother states that she had the patient stop her post-operative course of antibiotics due to the vomiting; the patient only took a single dose of this. Upon my initial assessment the patient appears very fatigued. Vitals are stable including no fevers. Labs are within normal limits for a patient who recently underwent surgery. UA demonstrated possible signs of a UTI however the patient is reporting no symptoms. Discussed these findings and patient verbalized understanding of reaching out to her primary if she develops symptoms. Administered 1L of fluids, Tylenol, Toradol, and Zofran. Upon my reassessment, patient displays much improvement stating that she would like to go home. Plan to discharge home with Zofran and advised to restart the amoxicillin. Recommended calling her ENT's office tomorrow to fill them in on her condition. She has a scheduled follow-up later this month. Patient agrees with discussion and after shared medical decision making agrees with plan of care. All questions were answered to the patient's satisfaction. The patient is appropriate for outpatient treatment and follow-up. Given reasons to return. Differential Diagnosis Differential Diagnosis: Differential diagnostic considerations for nausea/vomiting/diarrhea include gastroenteritis, appendicitis, IBD, intestinal obstruction, clostridium difficile, food poisoning, peritonitis, IBS, dehydration, ischemic bowel, ACS, pancreatitis, drug induced nausea/vomiting. Medical Records I have reviewed the following patient records and this information was taken into consideration when formulating the assessment and plan.: previous labs and previous ER visits Lab Data MDM Lab Attestation statement: I personally reviewed the patient's lab results. 08/25/25 23:40 08/25/25 23:40 Labs: Lab Results 08/25/25 08/25/25 Range/Units 22:54 23:40 WBC 11.8 H (4.5-10.0) K/mm3 RBC 5.07 (4.2-5.4) M/mm3 Hgb 14.1 (12.0-15.0) g/dL Hct 42.2 (37.0-47.0) % MCV 83.2 (80-100) fl MCH 27.8 (26-34) pg MCHC 33.4 (32-36) g/dl RDW 12.4 (11.5-14.5) % Plt Count 426 H (150-375) k/mm3 MPV 8.9 (7.4-10.4) fl Immature Gran % (Auto) 0.5 (0-0.5) % Neut % (Auto) 74.4 H (45.5-73.1) % Lymph % (Auto) 14.3 L (18.3-44.2) % Placer % (Auto) 10.2 H (2.6-8.5) % Eos % (Auto) 0.3 (0-4.4) % Baso % (Auto) 0.3 (0.2-1.2) % Lymph # (Auto) 1.69 (0.9-3.2) K/mm3 Placer # (Auto) 1.2 H (0.1-0.6) K/mm3 Eos # (Auto) 0.0 (0-0.3) K/mm3 Baso # (Auto) 0.0 (0.0-0.1) K/mm3 Abs Immat Gran (auto) 0.06 H (0.00-0.031) K/mm3 Absolute Neuts (auto) 8.8 H (1.3-6.7) K/mm3 Absolute Nucleated RBC 0.000 (0.0-0.012) K/mm3 Nucleated RBC % 0.0 (0.0-0.2) % Sodium 134 L (137-145) mmol/L Potassium 3.7 (3.4-5.0) mmol/L Chloride 100 (98-107) mmol/L Carbon Dioxide 23 (22-30) mmol/L Anion Gap 11 (4-12) mmol/L BUN 12 (7-17) mg/dL Creatinine 0.60 L (0.7-1.0) mg/dL Estim Creat Clear Calc Not Reportable Estimated GFR > 60 (59 - ) Glucose 95 (65-110) mg/dL Calcium 9.7 (8.4-10.2) mg/dL Total Bilirubin 0.6 (0.2-1.3) mg/dL AST 25 (14-36) U/L ALT 37 H (6-35) U/L Alkaline Phosphatase 91 (38-126) U/L Total Protein 7.9 (6.3-8.2) g/dL Albumin 4.5 (3.5-5.1) g/dL Urine Color Dark yellow (Yellow) Urine Appearance Cloudy H (Clear) Urine pH 5.5 (5.0-9.0) Ur Specific [place] > 1.045 H (1.001-1.035) Urine Protein 1+ H (Negative) mg/dL Urine Glucose (UA) Negative (Negative) mg/dL Urine Ketones 4+ H (Negative) mg/dL Ur Blood (Man) Negative (Negative) Urine Nitrate Negative (Negative) Urine Bilirubin Negative (Negative) Urine Urobilinogen 1.0 (<2.0) mg/dL Add Ur Microanalysis Reviewed Leukocyte Esterase Rfl Negative (Negative) MARISOL/UL Urine RBC 3-5 H (0-2) /hpf Urine WBC 11-20 H (0-3) /hpf Ur Squamous Epith Cells Few (Few) /hpf Urine Bacteria 4+ H /hpf Urine Casts 6-10 POC Urine HCG, Qual Negative (Negative) Discharge Plan Discharge Clinical Impression: Nausea and vomiting Qualifiers: Vomiting type: bilious vomiting Qualified Code(s): R11.14 - Bilious vomiting Patient Disposition: Home Condition: Stable Instructions: Antibiotic Form, Acute Nausea and Vomiting (ED), Tonsillectomy (DC) Additional Instructions: Return to the emergency department if you experience fever, chest pain, shortness of breath, abdominal pain with nausea and vomiting, weakness, numbness/tingling, or any other symptoms that are concerning to you. Follow-up closely with your ENT. Take antibiotics and anti-nausea medication as prescribed. Follow up with primary care doctor for any other general concerns. Patient Language: Pashto Prescriptions: New ondansetron 4 mg tablet,disintegrating 4 mg PO Q6H PRN (Reason: nausea and vomiting) Qty: 20 0RF No Action norethindrone (contraceptive) 0.35 mg tablet amoxicillin-pot clavulanate [Augmentin] 500-125 mg tablet 1 tablet PO BID 5 Days Qty: 10 0RF Follow-up/Referrals: PHYSICIAN,VISION CARE ASSOCIATE [Primary Care Provider, Internal Medicine]
== END 2025-08-26 02:23 | disposition home or self-care (01) ==
PROVIDERS: Emergency Medicine
DX: R11.14 Bilious vomiting (principal); Z98.890 Other specified postprocedural states; Z90.89 Acquired absence of other organs; Z87.891 Personal history of nicotine dependence; Z79.3 Long term (current) use of hormonal contraceptives
CPT/HCPCS: 36415; 80053; 81001; 81025; 85025; 96361; 96374; 96375; 99284; A9270; J1885; J2405; J7120